=== PATIENT | male | born 1985 | race Caucasian/White ===

== ENCOUNTER 2017-08-11 21:08 | Emergency (ER) | payer BC, OTHER ==
[2017-08-11 21:21] VITALS: BP 127/83
--- NOTE | 2017-08-11 22:38 | UC ---
Skin Complaint HPI - HPI Summary HPI Summary: patient states he was using a yoga mat earlier today and it had contact with his face. He also used a towel to clean eyes, and noticed itching and swelling of upper right eyelid for which he took Benadryl. He noticed swelling and itching subsided shortly after benadryl. He has history of asthma which is well controlled with advair, has not taken any rescue inhalers for a long time. Denies chest pain, SOB, dysphagia, dyspnea or wheezing. Denies rash elsewhere in the body - History of Current Complaint Chief Complaint: UCEye Time Seen by Provider: 08/11/17 21:28 Stated Complaint: ALLERGIC REACTION, EYE SWOLLEN Hx Obtained From: Patient Onset/Duration: Sudden Onset, Lasting Hours Skin Exposure Onset/Duration: Hours Ago Onset Severity: Mild Current Severity: Mild Pain Intensity: 0 Pain Scale Used: 0-10 Numeric Location: Face Aggravating Factor(s): Nothing Alleviating Factor(s): Nothing Associated Signs & Symptoms: Positive: Negative - Allergy/Home Medications Allergies/Adverse Reactions: Allergies Allergy/AdvReac Type Severity Reaction Status Date / Time No Known Allergies Allergy Verified 08/11/17 21:21 Review of Systems All Other Systems Reviewed And Are Negative: Yes PMH/Surg Hx/FS Hx/Imm Hx Respiratory History: Asthma - Surgical History Surgical History: None - Family History Known Family History: Positive: None - Social History Alcohol Use: Occasionally Substance Use Type: Marijuana Smoking Status (MU): Former Smoker Physical Exam Triage Information Reviewed: Yes Appearance: Well-Appearing, No Pain Distress, Well-Nourished Vital Signs: Initial Vital Signs Temp 98.4 F 08/11/17 21:14 Pulse 68 08/11/17 21:14 Resp 16 08/11/17 21:14 BP 127/83 08/11/17 21:14 Pulse Ox 99 08/11/17 21:14 Vital Signs Reviewed: Yes Eyes: Positive: Conjunctiva Clear, Other: - mild edema of superior eyelid of right eye, no discharge, SALAZAR, no foreign body ENT: Positive: Pharynx normal, Uvula midline Neck exam: Normal Respiratory: Positive: Chest non-tender, Lungs clear, Normal breath sounds Cardiovascular: Positive: RRR, No Murmur, Pulses Normal Skin Exam: Normal Course/Dx - Course Course Of Treatment: patient's symptoms abated with benadryl, advised to watch for systemic signs of allergies or rashes elsewhere, avoid or clean yoga mat with neutral detergents, dispose of towel that caused reaction on his eye - Diagnoses Provider Diagnoses: Swelling of eyelid Discharge - Sign-Out/Discharge Documenting (check all that apply): Discharge/Admit/Transfer - Discharge Plan Condition: Good Disposition: HOME Patient Education Materials: Diphenhydramine (By mouth), Allergies (ED) Referrals: No Primary Care Phys,NOPCP [Primary Care Provider] - [facility] [place] [facility] [Outside] - Billing Disposition and Condition Condition: GOOD Disposition: Home
== END 2017-08-11 22:00 | disposition home or self-care (01) ==
LOC: UCEAST 21:08
DX: H02.841 Edema of right upper eyelid (principal); J45.909 Unspecified asthma, uncomplicated; Z87.891 Personal history of nicotine dependence
CPT/HCPCS: 99211; G0463